=== PATIENT | female | born 1980 | race African-American/Black ===

== ENCOUNTER → 2019-05-26 | Outpatient (CLI) | payer OTHER ==
[2019-05-26 10:49] LABS: ABSOLUTE EOSINOPHILS # (AUTO) 0.3 10^3/uL (0.0-0.6); ABSOLUTE LYMPHOCYTES (AUTO) 1.3 10^3/uL (0.5-4.7); ABSOLUTE MONOCYTES (AUTO) 0.3 10^3/uL (0.1-1.4); ABSOLUTE NEUT (AUTO) 2.1 10^3/uL (1.7-8.2); BASOPHILS % (AUTO) 0.9 % (0-2); EOSINOPHILS % (AUTO) 6.9 % (0-6); LYMPHOCYTES % (AUTO) 32.8 % (13-45); MEAN CORPUSCULAR HEMOGLOBIN 32.1 pg (27.0-33.4); MEAN CORPUSCULAR HGB CONC 34.3 g/dL (32.0-36.0); MEAN CORPUSCULAR VOLUME 94 fl (80-97); MONOCYTES % (AUTO) 8.2 % (3-13); PLATELET COUNT 379 10^3/uL (150-450); RED BLOOD COUNT 3.74 10^6/uL (3.72-5.28); RED CELL DISTRIBUTION WIDTH 12.2 % (11.5-14.0); SEGMENTED NEUTROPHILS % (AUTO) 51.2 % (42-78); TOTAL CELLS COUNTED % (AUTO) 100 %
[2019-05-26 11:08] LABS: ALBUMIN 3.9 g/dL (3.5-5.0); ALKALINE PHOSPHATASE 71 U/L (38-126); ANION GAP 6 (5-19); ASPARTATE AMINO TRANSFERASE 19 U/L (14-36); BILIRUBIN,DIRECT 0.1 mg/dL (0.0-0.4); BILIRUBIN,TOTAL 0.3 mg/dL (0.2-1.3); BLOOD UREA NITROGEN 14 mg/dL (7-20); CALCIUM 9.5 mg/dL (8.4-10.2); CARBON DIOXIDE 29 mmol/L (22-30); CHLORIDE 103 mmol/L (98-107); CHOLESTEROL 166.37 mg/dL (0-200); GLUCOSE 81 mg/dL (75-110); IRON 73.8 ug/dL (37-170); POTASSIUM 4.4 mmol/L (3.6-5.0); TRIGLYCERIDES 84 mg/dL (<150)
[2019-05-26 11:19] LABS: DIRECT LDL 103 mg/dL (<100)
== END ==
LOC: OD 10:00
PROVIDERS: ATTEND Family Medicine
DX: Z13.1 Encounter for screening for diabetes mellitus (principal); Z13.220 Encounter for screening for lipoid disorders; N92.4 Excessive bleeding in the premenopausal period
CPT/HCPCS: 36415; 80053; 80061; 82728; 83540; 84443; 85025

== ENCOUNTER 2019-09-15 07:07 | Emergency (ER) | payer OTHER ==
[2019-09-15] MEDS ORDERED: IBUPROFEN 800 MG TABLET PO ONE (08:28)
--- NOTE | 2019-09-15 08:32 | ER Document Report ---
ED Extremity Problem, Lower - General Chief Complaint: Foot Pain Stated Complaint: FOOT SWELLING Time Seen by Provider: 09/15/19 08:15 Primary Care Provider: [facility] [Provider Group] - Follow up as needed [facility] [Provider Group] - Follow up as needed Mode of Arrival: Ambulatory Information source: Patient Notes: Patient presents complaining of left foot pruritus that started last night. Patient states that the foot started to become painful and felt like she was walking on a painful ball on the plantar surface of her foot. Patient states that she elevated the foot through the night and the swelling is modestly im proved today although the pain persists. Patient states she had a similar episode that affected the right foot about a month ago. Patient was never evaluated for the right foot swelling. Patient denies any right foot swelling today. Patient denies any foods medications or detergents. Patient denies any skin rash, difficulty breathing or difficulty swallowing. TRAVEL OUTSIDE OF THE [place] IN LAST 30 DAYS: No - HPI Patient complains to provider of: Pain, Swelling Location: Foot Occurred: Yesterday Onset/Duration: Gradual Quality of pain: Sharp Pain Level: 4 Context: denies: Barefoot Recent injury: No Exacerbated by: Movement, Walking Relieved by: Nothing - Related Data Allergies/Adverse Reactions: oxycodone Allergy (Verified 09/15/19 07:36) Past Medical History - General Information source: Patient - Social History Smoking Status: Never Smoker Chew tobacco use (# tins/day): No Drug Abuse: None Occupation: Housekeeping Family History: Reviewed & Not Pertinent Patient has suicidal ideation: No Patient has homicidal ideation: No - Past Medical History Cardiac Medical History: Reports: Hx Hypertension GI Medical History: Reports: Hx Gastroesophageal Reflux Disease, Hx Irritable Bowel Past Surgical History: Reports: Hx Gynecologic Surgery Review of Systems - Review of Systems Constitutional: No symptoms reported. denies: Fever EENT: No symptoms reported Cardiovascular: No symptoms reported. denies: Chest pain, Dizziness Respiratory: No symptoms reported. denies: Cough, Short of breath Gastrointestinal: No symptoms reported Genitourinary: No symptoms reported Female Genitourinary: No symptoms reported Musculoskeletal: Other - Left foot pain with swelling Skin: No symptoms reported Hematologic/Lymphatic: No symptoms reported Neurological/Psychological: No symptoms reported Physical Exam - Vital signs Vitals: Temp Pulse Resp BP Pulse Ox 97.4 F 73 20 132/87 H 100 09/15/19 07:28 09/15/19 07:28 09/15/19 07:28 09/15/19 07:28 09/15/19 07:28 - General General appearance: Appears well, Alert In distress: None - HEENT Head: Normocephalic, Atraumatic Eyes: Normal Conjunctiva: Normal Neck: Normal, Supple - Respiratory Respiratory status: No respiratory distress Chest status: Nontender Breath sounds: Normal. No: Rales, Rhonchi, Stridor, Wheezing Chest palpation: Normal - Cardiovascular Rhythm: Regular Heart sounds: S1 appreciated, S2 appreciated Pulses: Normal: Posterior tibial, Dorsalis pedis - Back Back: Normal - Extremities General upper extremity: Normal inspection, Normal strength General lower extremity: Normal strength Ankle: Normal, Nontender Foot: Tender - Generalized tenderness to left foot worse to the plantar surface over mildly erythematous 1 cm lesion to plantar surface of foot. 2+ edema, Edema. No: Instability, Laceration - Neurological Neuro grossly intact: Yes Cognition: Normal [place] Coma Scale Eye Opening: Spontaneous [place] Coma Scale Verbal: Oriented [place] Coma Scale Motor: Obeys Commands [place] Coma Scale Total: 15 - Psychological Associated symptoms: Normal affect, Normal mood - Skin Skin Temperature: Warm Skin Moisture: Dry Skin Color: Erythema - Mild erythema to dorsal aspect of left foot over the distal metatarsal and toes, patient with erythematous macular lesion to the plantar surface of left foot Course - Re-evaluation Re-evalutation: 09/15/19 08:[address] Zhou regarding patient presentation. Recommends checking for diabetes and performing x-ray at this time. 09/15/19 09:55 Dr. Zhou evaluated patient in room and recommends adding on uric acid. Has concerns about possible gout. 09/15/19 11:04 Patient's x-ray reviewed, no acute fracture or retained foreign body. Patient with no acute findings on diagnostic tests. Will treat symptomatically and encourage outpatient orthopedic follow-up at this time. - Vital Signs Vital signs: Temp Pulse Resp BP Pulse Ox 98.0 F 68 16 127/85 H 98 09/15/19 11:21 09/15/19 11:21 09/15/19 11:21 09/15/19 11:21 09/15/19 11:21 - Laboratory Result Diagrams: 09/15/19 08:08 09/15/19 08:08 Laboratory results interpreted by me: 09/15/19 09/15/19 08:08 08:08 Hgb 11.9 L Hct 35.6 L Carbon Dioxide 32 H Labs- Entire Visit 09/15/19 09/15/19 09/15/19 08:08 08:08 08:08 WBC 4.4 RBC 3.80 Hgb 11.9 L Hct 35.6 L MCV 94 MCH 31.4 MCHC 33.4 RDW 12.7 Plt Count 359 Lymph % (Auto) 26.0 Gaines % (Auto) 7.5 Eos % (Auto) 5.3 Baso % (Auto) 0.6 Absolute Neuts (auto) 2.7 Absolute Lymphs (auto) 1.1 Absolute Monos (auto) 0.3 Absolute Eos (auto) 0.2 Absolute Basos (auto) 0.0 Seg Neutrophils % 60.6 Sodium 138.9 Potassium 3.8 Chloride 102 Carbon Dioxide 32 H Anion Gap 5 BUN 13 Creatinine 0.96 Est GFR ( Amer) > 60 Est GFR (MDRD) Non-Af > 60 Glucose 89 Uric Acid 4.5 Calcium 9.1 - Diagnostic Test Radiology reviewed: Reports reviewed Discharge - Discharge Clinical Impression: Left foot pain Condition: Stable Disposition: HOME, SELF-CARE Instructions: Anti-Inflammatory Medication ([facility]), Use of Crutches ([facility]), Gout ([facility]), Gout Diet ([facility]) Additional Instructions: Return immediately for any new or worsening symptoms Followup with your primary care provider, call tomorrow to make a followup appointment Weightbearing as tolerated Follow-up with orthopedics for further evaluation, call today for an appointment Prescriptions: Indomethacin [Indocin 50 Mg Capsule] 50 mg PO TID PRN #12 capsule PRN Reason: Forms: Return to Work Referrals: [facility] [Provider Group] - Follow up as needed [facility] [Provider Group] - Follow up as needed
[2019-09-15 08:51] LABS: ABSOLUTE EOSINOPHILS # (AUTO) 0.2 10^3/uL (0.0-0.6); ABSOLUTE LYMPHOCYTES (AUTO) 1.1 10^3/uL (0.5-4.7); ABSOLUTE MONOCYTES (AUTO) 0.3 10^3/uL (0.1-1.4); ABSOLUTE NEUT (AUTO) 2.7 10^3/uL (1.7-8.2); BASOPHILS % (AUTO) 0.6 % (0-2); EOSINOPHILS % (AUTO) 5.3 % (0-6); HEMATOCRIT 35.6 % (36.0-47.0); HEMOGLOBIN 11.9 g/dL (12.0-15.5); MEAN CORPUSCULAR HEMOGLOBIN 31.4 pg (27.0-33.4); MEAN CORPUSCULAR HGB CONC 33.4 g/dL (32.0-36.0); MEAN CORPUSCULAR VOLUME 94 fl (80-97); MONOCYTES % (AUTO) 7.5 % (3-13); PLATELET COUNT 359 10^3/uL (150-450); RED CELL DISTRIBUTION WIDTH 12.7 % (11.5-14.0); SEGMENTED NEUTROPHILS % (AUTO) 60.6 % (42-78); TOTAL CELLS COUNTED % (AUTO) 100 %; WHITE BLOOD COUNT 4.4 10^3/uL (4.0-10.5)
[2019-09-15 08:56] LABS: ANION GAP 5 (5-19); BLOOD UREA NITROGEN 13 mg/dL (7-20); CALCIUM 9.1 mg/dL (8.4-10.2); CARBON DIOXIDE 32 mmol/L (22-30); CHLORIDE 102 mmol/L (98-107); GLUCOSE 89 mg/dL (75-110); POTASSIUM 3.8 mmol/L (3.6-5.0)
--- NOTE | 2019-09-15 09:34 | RADIOLOGY REPORT (SQ) ---
EXAM DESCRIPTION: FOOT LEFT COMPLETE COMPLETED DATE/TIME: 09/15/2019 9:20 am REASON FOR STUDY: L foot pain, swelling COMPARISON: None. NUMBER OF VIEWS: Three views. TECHNIQUE: AP, lateral and oblique radiographic images acquired of the left foot. LIMITATIONS: None. FINDINGS: MINERALIZATION: Normal. BONES: No acute fracture or dislocation. No worrisome bone lesions. JOINTS: Very mild joint space narrowing 1st metatarsophalangeal joint. SOFT TISSUES: 1st metatarsophalangeal joint region soft tissue swelling. No foreign body. OTHER: No other significant finding. IMPRESSION: No acute fracture. Mild joint space narrowing and soft tissue swelling at the 1st metatarsophalangeal joint TECHNICAL DOCUMENTATION: JOB ID: [id number] 2010 [employer]- All Rights Reserved Reading location - IP/workstation name: [email or web address]
[2019-09-15 11:26] VITALS: BP 127/85
== END 2019-09-15 11:31 | disposition home or self-care (01) ==
LOC: ER 07:07
DX: M79.672 Pain in left foot (principal); I10 Essential (primary) hypertension; K21.9 Gastro-esophageal reflux disease without esophagitis
CPT/HCPCS: 36415; 80048; 84550; 85025; 99283